=== PATIENT | female | born 1985 | race Caucasian/White ===

== ENCOUNTER 2020-04-06 12:49 | Emergency (ER) | payer BC ==
[2020-04-06] MEDS ORDERED: HYDROmorphone 1 MG/ML 1 ML SYRINGE IVP STA ×3 (12:52→15:09)
[2020-04-06] MEDS ORDERED: DIPH,PERTUS(ACELL)TETVAC-LF 0.5 ML VIAL IM ONE (12:52)
[2020-04-06 12:59] VITALS: BP 137/98; PULSE 84; RESP 20; TEMP 98.3
[2020-04-06] MEDS ORDERED: LACTATED RINGERS 1,000 ML IV ONE ×2 (13:00→14:15)
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
[2020-04-06 13:12] LABS: Basophils # (A) 0.1 k/uL (0-0.2); Basophils % (A) 1 %; Eosinophils # (A) 0.4 k/uL (0-0.7); Eosinophils % (A) 3 %; HCT 43.4 % (34.0-46.0); Lymphocytes # (A) 3.1 k/uL (1.0-4.8); Lymphocytes % (A) 28 %; MCH 29.1 pg (25.0-35.0); MCHC 32.2 g/dL (31.0-37.0); MCV 90.4 fL (80.0-100.0); Mean Platelet Volume 7.5; Monocytes # (A) 0.4 k/uL (0-1.0); Monocytes % (A) 4 %; Neutrophils # (A) 6.8 k/uL (1.3-7.7); Neutrophils % (A) 61 %; Platelet Count 268 k/uL (150-450); RDW 12.5 % (11.5-15.5); WBC 11.1 k/uL (3.8-10.6)
[2020-04-06 13:21] LABS: ALT 23 U/L (4-34); African American GFR (CKD) >90 (>60 ml/min/1.73 sqM); Albumin 4.1 g/dL (3.5-5.0); Anion Gap 7 mmol/L; Blood Urea Nitrogen 19 mg/dL (7-17); Calcium 8.5 mg/dL (8.4-10.2); Carbon Dioxide 22 mmol/L (22-30); Chloride 107 mmol/L (98-107); Glucose 174 mg/dL (74-99); Non-African American GFR(CKD) >90 (>60 ml/min/1.73 sqM); Sodium 136 mmol/L (137-145); Total Bilirubin 1.3 mg/dL (0.2-1.3); Total Protein 6.4 g/dL (6.3-8.2)
[2020-04-06 13:24] LABS: AST 41 U/L (14-36); Potassium 4.4 mmol/L (3.5-5.1)
[2020-04-06 13:25] LABS: Alkaline Phosphatase 29 U/L (38-126)
[2020-04-06] MEDS ORDERED: LORazepam 2 MG/ML INJ IV STA (13:30)
[2020-04-06 13:45] LABS: Partial Thromboplastin Time 22.9 sec (22.0-30.0); Prothrombin Time 10.7 sec (9.0-12.0)
[2020-04-06] MEDS ORDERED: HYDROmorphone 0.5 MG/0.5 ML SYRINGE IVP STA (13:49)
[2020-04-06] MEDS ORDERED: LACTATED RINGERS 1,000 ML IV SCH (14:15)
== END 2020-04-06 15:53 | disposition other institution (70) ==
LOC: EC 12:49
DX: T23.202A Burn of second degree of left hand, unspecified site, initial encounter (principal); T23.201A Burn of second degree of right hand, unspecified site, initial encounter; T22.212A Burn of second degree of left forearm, initial encounter; T22.211A Burn of second degree of right forearm, initial encounter; T24.202A Burn of second degree of unspecified site of left lower limb, except ankle and foot, initial encounter; T24.201A Burn of second degree of unspecified site of right lower limb, except ankle and foot, initial encounter; T31.40 Burns involving 40-49% of body surface with 0% to 9% third degree burns; F41.9 Anxiety disorder, unspecified; F32.9 Major depressive disorder, single episode, unspecified; Z79.899 Other long term (current) drug therapy; X08.8XXA Exposure to other specified smoke, fire and flames, initial encounter; Y93.E9 Activity, other interior property and clothing maintenance; Y92.009 Unspecified place in unspecified non-institutional (private) residence as the place of occurrence of the external cause
CPT/HCPCS: 36415; 80053; 85025; 85610; 85730; 90715; 99291; 96365; 96375 ×2; 96376 ×2; 96361 ×2; 90471; J2060; J0690; J1170 ×2